=== PATIENT | female | born 1990 | race Hispanic/Latino ===

== ENCOUNTER 2017-10-20 18:44 | Inpatient (IN) | payer BC ==
[2017-10-20 19:08] VITALS: BMI 27.8
[2017-10-20] MEDS ORDERED: Lidocaine 1% (PF) 30 ML VIAL SC PRN (19:22)
[2017-10-20] MEDS ORDERED: Diphenoxylate HCl/Atropine Tablet PO SCH (19:22)
[2017-10-20] MEDS ORDERED: Ondansetron HCl/PF 4 MG/2 ML Vial IVP PRN ×2 (19:22→22:03)
[2017-10-20] MEDS ORDERED: HYDROcodone/Acetaminophen 5/325 mg Tablet PO PRN (19:22)
[2017-10-20] MEDS ORDERED: Methylergonovine 0.2 MG/ML VIAL IM PRN (19:22)
[2017-10-20] MEDS ORDERED: LR / Pitocin 40 units/1000 ml 1,000 ML IV PRN (19:22)
[2017-10-20] MEDS ORDERED: Acetaminophen 500 MG TAB PO PRN (19:22)
[2017-10-20] MEDS ORDERED: Ibuprofen 800 MG TAB PO PRN (19:22)
[2017-10-20] MEDS ORDERED: Carboprost 250 MCG/ML AMP IM PRN (19:22)
[2017-10-20] MEDS ORDERED: Promethazine HCl 25 MG/ML VIAL IM PRN ×2 (19:22→22:03)
[2017-10-20] MEDS ORDERED: Misoprostol 200 MCG TAB PR PRN (19:22)
[2017-10-20] MEDS ORDERED: Lactated Ringer's 1,000 ML IV SCH (19:30)
[2017-10-20] MEDS ORDERED: Penicillin G Potassium 5 MILL.UNITS in Sodium Chloride 0.9% 100 ML IVPB SCH (19:30)
[2017-10-20 19:46] LABS: Hemoglobin 12.2 g/dL (12.0-16.0); Mean Corpuscular HGB CONC 34.3 g/dL (32.0-36.0); Mean Corpuscular Hemoglobin 29.6 pg (27.0-31.0); Mean Corpuscular Volume 86.2 fl (81.0-99.0); Mean Platelet Volume 7.3 fL (7.4-10.4); Platelet Count 231 thou/uL (130-400); RBC Distribution Width 12.3 % (11.5-14.5); Red Blood Cell (RBC) Count 4.14 mill/uL (4.20-5.40); White Blood Cell (WBC) Count 6.4 thou/uL (4.8-10.8)
[2017-10-20] MEDS ORDERED: Penicillin G Potassium 5 MILL.UNITS VIAL ONE (19:49)
[2017-10-20 20:28] LABS: Syphilis Antibody Nonreactive (Nonreactive)
--- NOTE | 2017-10-20 20:40 | PDOC.LDHP ---
Labor and Delivery H&P Chief complaint: contractions HPI: 27 yo @ 39w1d by LMP c/w 11 week sono who presents with c/o ctx and spotting. + FM. Anetpartum course benign. Current gestational age (weeks): 39 Dating criteria: last menstrual period Grav: 5 Para: 3 OB History Details: 3 term SVDs 1 ectopic Current complications: none Abnormal US findings: No Current medications: pre- vitamins Previous surgical history: other (ectopic ) Allergies/Adverse Reactions: Allergies Allergy/AdvReac Type Severity Reaction Status Date / Time No Known Allergies Allergy Verified 10/20/17 19:32 Social history: none - Physical Exam Vital signs reviewed and normal: yes General: NAD Heart: RRR Lungs: nonlabored breathing Abdomen: gravid Extremeties: no edema FHT: category 1 (150s, mod marco a, +accels, no decels) [place] contractions every: q5-10 min - Vaginal Exam cm dilated: 5 (cephalic) Effacement: 75% Station: -2 - OB Labs Blood type: A RH: positive Antibody Screen: negative HIV: negative RPR: negative HEPSAg: negative 1 hour GCT: positive 3 hour GTT: negative GBS: positive Urine drug screen: not done Rubella: immune Additional Labs: AFP tetra negative - Assessment 39w1d IUP Latent labor GBS+ - Plan Plan: admit to L&D, labor augmentation if indicated, GBS antibiotic prophylaxis , informed consent obtained -: Due to cervical dilation and pt home 1.5 hours away, recommend admission for latent labor. Augmentation may be needed.
[2017-10-20] MEDS ORDERED: LR 500 ML/Oxytocin 10 units 500 ML IV SCH (21:00)
[2017-10-20] MEDS ORDERED: Bupivacaine 0.5% 20 ML, fentaNYL Citrate/PF 400 MCG in Sodium Chloride 0.9% 72 ML EPIDURAL SCH (21:30)
--- NOTE | 2017-10-20 21:31 | PDOC.LDPN ---
Labor & Delivery Progress Note - Subjective Subjective: painful contractions - Objective Vital signs reviewed and normal: yes General: NAD, resting Uterine fundus: non tender Dilation: 6 Effacement: 75% Station: -2 FHT: category 1 [place] contractions every: 12-20 mins AROM: clear fluid Plan: continue plan of care
[2017-10-20] MEDS ORDERED: Naloxone HCl 0.4 mg/ml Vial IVP PRN ×2 (22:03)
[2017-10-20] MEDS ORDERED: diphenhydrAMINE 50 MG/ML VIAL IVP PRN (22:03)
[2017-10-20] MEDS ORDERED: ePHEDrine/0.9% NaCl/PF SYRINGE 50 mg/10 ml SLOW IVP PRN (22:03)
[2017-10-20] MEDS ORDERED: Acetaminophen 325 MG TAB PO PRN (22:03)
[2017-10-20] MEDS ORDERED: Lactated Ringer's 500 ML IV PRN (22:03)
[2017-10-20] MEDS ORDERED: Eucerin (Mineral Oil/Petrolatum,White) 30 gm Jar TOP PRN (22:03)
[2017-10-20] MEDS ORDERED: Communication Order-Pharmacy FS SCH (22:15)
[2017-10-20] MEDS ORDERED: Fentanyl 4mcg/Marcaine 0.1% Cassette 100 ML EPIDURAL SCH (22:15)
[2017-10-20] MEDS: Pen G 2.5 MILL.UNITS/50 ML BAG IVPB SCH (23:45)
[2017-10-21] MEDS ORDERED: Benzocaine/Menthol 20-0.5% 60 ML CAN TOP PRN (00:05)
[2017-10-21] MEDS ORDERED: Milk Of Magnesia 30 ML UDCUP PO PRN (00:05)
[2017-10-21] MEDS ORDERED: Ondansetron HCl/PF 4 MG/2 ML Vial IVP PRN (00:05)
[2017-10-21] MEDS ORDERED: diphenhydrAMINE 25 MG CAP PO PRN (00:05)
[2017-10-21] MEDS ORDERED: Zolpidem Tartrate 5 MG TAB PO PRN (00:05)
[2017-10-21] MEDS ORDERED: Promethazine HCl 25 MG/ML VIAL IM PRN (00:05)
[2017-10-21] MEDS ORDERED: Preparation H Ointment 28 GM TUBE PR PRN (00:05)
[2017-10-21] MEDS ORDERED: Methylergonovine 0.2 MG/ML VIAL IM PRN (00:05)
[2017-10-21] MEDS ORDERED: Lanolin Ointment 7 GM TUBE TOP PRN (00:05)
[2017-10-21] MEDS ORDERED: Bisacodyl 10 MG SUPP PR PRN (00:05)
[2017-10-21] MEDS ORDERED: HYDROcodone/Acetaminophen 5/325 mg Tablet PO PRN ×2 (00:05)
--- NOTE | 2017-10-21 00:07 | PDOC.OPDEL ---
OB Operative/Delivery Note Delivery Dr/Surgeon: Katelyn Pre-Delivery Diagnosis: active labor Procedure/Post Delivery Dx: spontaneous vaginal delivery Weeks gestation: 39 Anesthesia: epidural - Findings A Sex: male Weight: 6 lb 12.714 oz - 1 min: 9 - 5 min: 9 - Additional Findings/Plan Repaired Obstetrical Laceration: none Estimated blood loss: 150 Post delivery plan: routine recovery
[2017-10-21] MEDS ORDERED: Misoprostol 200 MCG TAB VAG SCH (00:15)
[2017-10-21] MEDS: LR / Pitocin 40 units/1000 ml 1,000 ML IV SCH ×2 (00:30→02:13)
[2017-10-21] MEDS: Pen G 2.5 MILL.UNITS/50 ML BAG IVPB SCH (02:56)
[2017-10-21] MEDS: Ibuprofen 800 MG TAB PO SCH ×3 (05:06→21:46)
[2017-10-21 05:59] LABS: Hemoglobin 11.3 g/dL (12.0-16.0); Mean Corpuscular HGB CONC 34.1 g/dL (32.0-36.0); Mean Corpuscular Hemoglobin 29.4 pg (27.0-31.0); Mean Corpuscular Volume 86.3 fl (81.0-99.0); Mean Platelet Volume 7.3 fL (7.4-10.4); Platelet Count 211 thou/uL (130-400); RBC Distribution Width 12.2 % (11.5-14.5); Red Blood Cell (RBC) Count 3.84 mill/uL (4.20-5.40); White Blood Cell (WBC) Count 10.9 thou/uL (4.8-10.8)
[2017-10-21] MEDS: Ferrous Sulfate 325 MG TAB PO SCH ×2 (08:57→17:16)
[2017-10-21] MEDS ORDERED: Measles/Mumps/Rubella 10 MCG/0.5 ML VIAL SC ONE (09:00)
[2017-10-21] MEDS ORDERED: Adacel (T-DAP) 0.5 ML VIAL IM ONE (09:00)
[2017-10-21] MEDS ORDERED: Varicella virus, LIVE 0.5 ML VIAL SC ONE (09:00)
[2017-10-21] MEDS: Docusate Calcium (SURFAK) 240 MG CAP PO SCH ×2 (09:21→21:46)
[2017-10-21] MEDS: Prenatal Vitamin 1 TAB PO SCH (09:21)
--- NOTE | 2017-10-21 09:53 | PDOC.PP ---
Post Progress Note Post Day #: 1 Subjective: doing well, nursing, no concerns PO intake tolerated: yes Flatus: yes Ambulation: yes Vital Signs (12 hours) Temp Pulse Resp BP 10/21/17 09:01 98.5 F 69 20 101/51 L 10/21/17 04:30 99.0 F 81 16 108/52 L 10/21/17 03:30 98.7 F 88 16 102/52 L 10/21/17 02:30 98.1 F 65 16 115/63 10/21/17 00:05 98.3 F 71 18 116/57 L Weight Weight 152 lb - Physical Examination General: NAD Respiratory: non-labored breathing Abdominal: no distention Fundus firm & at: below umb Extremities: negative homans (B) Skin: no rash Psychiatric: A&Ox3, normal affect Result Diagrams: 10/21/17 05:48 Additional Labs: Post Labs Blood Type A POSITIVE 10/20/17 19:35 (1) Normal Code(s): Z34.90 - ENCNTR FOR SUPRVSN OF NORMAL , UNSP, UNSP TRIMESTER Status: Acute (2) Vaginal delivery Code(s): O80 - ENCOUNTER FOR FULL-TERM UNCOMPLICATED DELIVERY Status: Acute - Assessment/Plan PPD1 doing well, continue PP care.
[2017-10-21 15:53] LABS: HBSAg Index 0.31 S/CO (0-0.99); HIV (1/2) Antibody/Antigen Non-Reactive (NonReactive); HIV 1/2 INDEX 0.09 S/CO (<1.00); Hep B Surf Ag Non-Reactive S/CO (NonReactive)
[2017-10-22] MEDS: Ibuprofen 800 MG TAB PO SCH ×2 (05:57→14:34)
[2017-10-22] MEDS: Ferrous Sulfate 325 MG TAB PO SCH (07:24)
--- NOTE | 2017-10-22 08:08 | PDOC.PP ---
Post Progress Note Post Day #: 2 PO intake tolerated: yes Flatus: yes Ambulation: yes Weight Weight 152 lb - Physical Examination General: NAD Cardiovascular: RRR Respiratory: non-labored breathing Abdominal: no distention, appropriately TTP Fundus firm & at: below umbilicus Extremities: negative homans (B) Skin: no rash Neurological: no gross focal deficits Psychiatric: A&Ox3 Result Diagrams: 10/21/17 05:48 Additional Labs: Post Labs Blood Type A POSITIVE 10/20/17 19:35 Hep Bs Antigen Non-Reactive S/CO (NonReactive) 10/20/17 19:35 (1) Vaginal delivery Code(s): O80 - ENCOUNTER FOR FULL-TERM UNCOMPLICATED DELIVERY Status: Acute - Assessment/Plan PPD2 VSSAF Meeting PP expectations D/c home today
[2017-10-22] MEDS: Prenatal Vitamin 1 TAB PO SCH (09:31)
[2017-10-22] MEDS: Docusate Calcium (SURFAK) 240 MG CAP PO SCH (09:31)
[2017-10-22 09:58] VITALS: BP 110/66; TEMP 98.5
[2017-10-22] MEDS ORDERED: Bupivacaine 0.25% HCL 30 ML VIAL ONE (10:00)
[2017-10-22] MEDS ORDERED: Bupivacaine/Epinephrine 0.25% 30 ML VIAL ONE (10:00)
== END 2017-10-22 15:00 | disposition home or self-care (01) | DRG 775 ==
LOC: L&D/OP 18:44 → L&D 19:47 → 3SW 10-21 02:28
PROVIDERS: ADMIT Obstetrics & Gynecology; ATTEND Obstetrics & Gynecology
PROC: 10E0XZZ Delivery of Products of Conception, External Approach (ICD-10-PCS; principal; 2017-10-20)
PROC: 10907ZC Drainage of Amniotic Fluid, Therapeutic from Products of Conception, Via Natural or Artificial Opening (ICD-10-PCS; 2017-10-20)
DX: O80 Encounter for full-term uncomplicated delivery (principal); Z37.0 Single live birth; Z3A.39 39 weeks gestation of pregnancy
CPT/HCPCS: 36415; 51702; 85027; 86780; 86850; 86900; 86901; 87340; 87389; 99285; J2001; J2540; J3010; J3490; J7050; J7120; S0020